=== PATIENT | male | born 1960 | race Caucasian/White ===

== ENCOUNTER 2018-06-14 16:12 | Emergency (ER) | payer OTHER ==
[~2018-06-14] VITALS: Ht 172.7 cm; Wt 77.3 kg
[~2018-06-14 16:12] MED LIST: ASPI81TA39 PO; ATOR40TA28 PO; LOSA50TA64 PO; METF-446 PO; TICA90TA PO
[2018-06-14 16:24] LABS: GLUCOSE,POINT OF CARE 195 MG/DL (70-110)
[2018-06-14] MEDS ORDERED: TICAGRELOR 90 MG TABLET PO ONE (18:15)
[2018-06-14 18:44] VITALS: BP 138/80
== END 2018-06-14 18:58 | disposition home or self-care (01) ==
LOC: EMS 16:13
DX: Z76.0 Encounter for issue of repeat prescription (principal); E11.9 Type 2 diabetes mellitus without complications; I10 Essential (primary) hypertension; Z79.84 Long term (current) use of oral hypoglycemic drugs; Z79.82 Long term (current) use of aspirin

== ENCOUNTER 2018-06-23 01:39 | Inpatient (IN) | payer OTHER ==
[~2018-06-23] VITALS: Ht 162.6 cm; Wt 72.3 kg
[2018-06-23 01:54] LABS: GLUCOSE,POINT OF CARE 259 MG/DL (70-110)
[2018-06-23] MEDS ORDERED: SODIUM CHLORIDE 0.9% 0 ML ONE (02:34)
[2018-06-23] MEDS ORDERED: IOVERSOL 350 MG/ML 100 ML VIAL ONE (02:34)
[2018-06-23 02:55] LABS: BASOPHILS % (AUTO) 0.5 % (0.0-2.0); EOSINOPHILS % (AUTO) 0.4 % (1.0-6.0); HEMATOCRIT 37.3 % (41-53); HEMOGLOBIN 12.6 g/dL (13.5-17.5); LYMPHOCYTES # (AUTO) 1.9 K/uL (1.0-4.8); LYMPHOCYTES % (AUTO) 15.4 % (22.0-44.0); MEAN CORPUSCULAR HEMOGLOBIN 29.2 pg (26.0-34.0); MEAN CORPUSCULAR HGB CONC 33.9 G/dL (31.0-37.0); MEAN CORPUSCULAR VOLUME 86 fL (80-100); MONOCYTES # (AUTO) 0.8 K/uL (0.1-1.0); MONOCYTES % (AUTO) 6.6 % (2.0-9.0); NEUTROPHILS # (AUTO) 9.3 K/uL (1.8-7.7); NEUTROPHILS % (AUTO) 77.1 % (40.0-70.0); PLATELET COUNT (AUTO) 243 K/uL (150-450); RED BLOOD CELL COUNT(AUTO) 4.32 MIL/uL (4.50-5.90); RED CELL DISTRIBUTION WIDTH 12.7 % (11.5-14.5)
[2018-06-23 03:04] LABS: ANION GAP 9 mmol/L (8-16); CARBON DIOXIDE 26 mmol/L (22-29); CHLORIDE 101 mmol/L (98-107); CREATININE 0.84 mg/dL (0.60-1.30); GLOMERULAR FILTR. RATE CALC > 60 mL/min (>60); GLUCOSE,RANDOM 249 mg/dL (70-110); POTASSIUM 3.8 mmol/L (3.5-5.1); SODIUM SERUM 136 mmol/L (136-145); UREA NITROGEN, BLOOD 16 mg/dL (7-18)
[2018-06-23 03:06] LABS: PROTHROMBIN TIME 10.6 SEC (9.4-11.6)
[2018-06-23 03:11] LABS: ALANINE AMINOTRANSFERASE 32 U/L (12-78); ALBUMIN 3.2 g/dL (3.4-5.0); ALKALINE PHOSPHATASE 113 U/L (46-116); ASPARTATE AMINOTRANSFERASE 15 U/L (15-37); BILIRUBIN,TOTAL 0.4 mg/dL (0.1-1.0); CREATINE KINASE, TOTAL ONLY 53 U/L (39-308); TOTAL PROTEIN, SERUM 6.7 g/dL (6.4-8.2)
[2018-06-23 03:21] LABS: B-TYPE NATRIURETIC PEPTIDE 138 pg/mL (0-100)
[2018-06-23] MEDS ORDERED: ASPIRIN 325 MG TABLET PO ONE (04:15)
[2018-06-23] MEDS ORDERED: 0.9% SODIUM CHLORIDE 10 ML SYRINGE IVP PRN ×2 (04:30→11:15)
[2018-06-23] MEDS ORDERED: ACETAMINOPHEN 325 MG TABLET PO PRN (04:30)
[2018-06-23] MEDS ORDERED: ONDANSETRON HCL 4 MG/2 ML VIAL IVP PRN ×2 (04:30→11:15)
[2018-06-23 07:25] LABS: APPEARANCE,URINE CLEAR (CLEAR); BILIRUBIN,URINE NEGATIVE (NEGATIVE); GLUCOSE, URINE (UA) 250 mg/dL (NEGATIVE); KETONES,URINE NEGATIVE (NEGATIVE); LEUKOCYTE ESTERASE ,URINE NEGATIVE (NEGATIVE); NITRATE,URINE NEGATIVE (NEGATIVE); OCCULT BLOOD,URINE NEGATIVE (NEGATIVE); PROTEIN,URINE NEGATIVE (NEGATIVE); UROBILINOGEN,URINE 0.2 mg/dL (<=1.0)
[2018-06-23 07:35] LABS: BACTERIA,URINE None Seen /HPF (None Seen); RBC,URINE None Seen /HPF (0-2); SQUAMOUS EPITHELIAL CELL,UR Rare /LPF (None Seen); WBC,URINE None Seen /HPF (0-5)
[2018-06-23] MEDS ORDERED: FUROSEMIDE 40 MG/4 ML VIAL IVP ONE (09:15)
[2018-06-23] MEDS ORDERED: POTASSIUM CHLORIDE 20 MEQ ER TABLET PO ONE (09:15)
[2018-06-23] MEDS: CARVEDILOL 3.125 MG TABLET PO SCH ×2 (10:04→21:23)
[2018-06-23] MEDS: TICAGRELOR 90 MG TABLET PO SCH ×2 (10:04→21:23)
[2018-06-23] MEDS: ATORVASTATIN CALCIUM 40 MG TABLET PO SCH (10:04)
[2018-06-23] MEDS: LOSARTAN POTASSIUM 25 MG TABLET PO SCH ×2 (11:01→21:00)
[2018-06-23] MEDS: ASPIRIN 81 MG EC TABLET PO SCH (11:01)
[2018-06-23] MEDS ORDERED: GLUCAGON,HUMAN RECOMBINANT 1 MG VIAL IM PRN (11:15)
[2018-06-23] MEDS ORDERED: DEXTROSE 50%-WATER 25 GM/50 ML SYRINGE IVP PRN (11:15)
[2018-06-23] MEDS ORDERED: ZOLPIDEM TARTRATE 5 MG TABLET PO PRN (11:15)
[2018-06-23 11:49] LABS: GLUCOSE,POINT OF CARE 236 MG/DL (70-110)
[2018-06-23] MEDS: PANTOPRAZOLE SODIUM 40 MG/VIAL IVP SCH (11:51)
[2018-06-23] MEDS: INSULIN LISPRO 100 UNITS/ML SQ PRN ×3 (12:09→21:22)
[2018-06-23 17:20] LABS: GLUCOSE,POINT OF CARE 177 MG/DL (70-110)
[2018-06-23] MEDS: MetFORMIN HCL 500 MG TABLET PO SCH (17:21)
[2018-06-23 20:34] VITALS: BP 114/67
[2018-06-23 23:59] VITALS: BP 101/55
[2018-06-24 00:45] LABS: GLUCOMETER DEV NAME(LOC) 5S.1; GLUCOSE,POINT OF CARE 225 MG/DL (70-110)
[2018-06-24 05:00] VITALS: BP 109/65
[2018-06-24] MEDS: INSULIN LISPRO 100 UNITS/ML SQ PRN ×2 (06:04→12:04)
[2018-06-24 07:19] LABS: GLUCOMETER DEV NAME(LOC) 5S.1; GLUCOSE,POINT OF CARE 174 MG/DL (70-110)
[2018-06-24 07:42] VITALS: BP 95/59
[2018-06-24] MEDS: MetFORMIN HCL 500 MG TABLET PO SCH (08:04)
[2018-06-24] MEDS: PANTOPRAZOLE SODIUM 40 MG/VIAL IVP SCH (08:04)
[2018-06-24] MEDS: TICAGRELOR 90 MG TABLET PO SCH (08:04)
[2018-06-24] MEDS: ATORVASTATIN CALCIUM 40 MG TABLET PO SCH (08:05)
[2018-06-24] MEDS: ASPIRIN 81 MG EC TABLET PO SCH (08:05)
[2018-06-24] MEDS: LOSARTAN POTASSIUM 25 MG TABLET PO SCH (08:05)
[2018-06-24] MEDS: CARVEDILOL 3.125 MG TABLET PO SCH (08:05)
[2018-06-24 08:29] LABS: BASOPHILS % (AUTO) 0.5 % (0.0-2.0); EOSINOPHILS % (AUTO) 1.4 % (1.0-6.0); HEMATOCRIT 37.8 % (41-53); HEMOGLOBIN 12.9 g/dL (13.5-17.5); LYMPHOCYTES # (AUTO) 2.7 K/uL (1.0-4.8); LYMPHOCYTES % (AUTO) 30.9 % (22.0-44.0); MEAN CORPUSCULAR HGB CONC 34.1 G/dL (31.0-37.0); MEAN CORPUSCULAR VOLUME 85 fL (80-100); MONOCYTES # (AUTO) 0.8 K/uL (0.1-1.0); NEUTROPHILS # (AUTO) 5.1 K/uL (1.8-7.7); NEUTROPHILS % (AUTO) 58.2 % (40.0-70.0); PLATELET COUNT (AUTO) 240 K/uL (150-450); RED BLOOD CELL COUNT(AUTO) 4.44 MIL/uL (4.50-5.90); RED CELL DISTRIBUTION WIDTH 12.8 % (11.5-14.5)
[2018-06-24 08:48] LABS: ALANINE AMINOTRANSFERASE 30 U/L (12-78); ALKALINE PHOSPHATASE 82 U/L (46-116); ANION GAP 6 mmol/L (8-16); ASPARTATE AMINOTRANSFERASE 18 U/L (15-37); BILIRUBIN,TOTAL 0.4 mg/dL (0.1-1.0); CALCIUM, TOTAL 8.7 mg/dL (8.8-10.5); CARBON DIOXIDE 29 mmol/L (22-29); CHLORIDE 104 mmol/L (98-107); CREATININE 0.82 mg/dL (0.60-1.30); GLOMERULAR FILTR. RATE CALC > 60 mL/min (>60); GLUCOSE,RANDOM 167 mg/dL (70-110); POTASSIUM 4.1 mmol/L (3.5-5.1); SODIUM SERUM 139 mmol/L (136-145); TOTAL PROTEIN, SERUM 6.2 g/dL (6.4-8.2); UREA NITROGEN, BLOOD 17 mg/dL (7-18)
[2018-06-24] MEDS ORDERED: FUROSEMIDE 20 MG TABLET PO SCH (09:30)
[2018-06-24 11:41] VITALS: BP 96/60
[2018-06-24 12:35] LABS: GLUCOMETER DEV NAME(LOC) 5S.1; GLUCOSE,POINT OF CARE 178 MG/DL (70-110)
[2018-06-24 15:00] VITALS: BP 97/61
[2018-06-24] MEDS ORDERED: LOSA25TA41 PO (15:33)
[2018-06-24] MEDS ORDERED: ASPI81 PO (15:34)
[2018-06-24] MEDS ORDERED: CARV3 PO (15:34)
[2018-06-24] MEDS ORDERED: FURO20 PO (15:34)
== END 2018-06-24 16:15 | disposition home or self-care (01) | DRG 194 ==
LOC: EMS 01:40 → 5S 18:19
PROVIDERS: ADMIT Internal Medicine; ATTEND Internal Medicine
DX: I11.0 Hypertensive heart disease with heart failure (principal); E11.9 Type 2 diabetes mellitus without complications; E78.5 Hyperlipidemia, unspecified; I50.21 Acute systolic (congestive) heart failure; I25.10 Atherosclerotic heart disease of native coronary artery without angina pectoris; E78.00 Pure hypercholesterolemia, unspecified; F41.9 Anxiety disorder, unspecified; Z79.84 Long term (current) use of oral hypoglycemic drugs
CPT/HCPCS: 83735; 93005; 93306; C9113; G0378; J1815; J1940; J7050

== ENCOUNTER 2021-07-07 08:50 | Inpatient (IN) | payer MEDICARE, OTHER ==
[~2021-07-07] VITALS: Ht 162.6 cm; Wt 74.2 kg
[~2021-07-07 08:50] MED LIST changes: +ASPI-1450 PO; -ASPI81TA39 PO; +CARV3 PO; +CLOP75TA60 PO; +ERTU5TAB PO; +FURO20 PO; -LOSA50TA64 PO; +METF-1211 PO; -METF-446 PO; +NITR0.4T52 SL; -TICA90TA PO
[2021-07-07] MEDS ORDERED: FAMOTIDINE 10 MG/ML 2 ML VIAL IVP ONE (09:30)
[2021-07-07] MEDS ORDERED: ACETAMINOPHEN 500 MG TABLET PO ONE (09:30)
[2021-07-07] MEDS ORDERED: MAG HYDROX/AL HYDROX/SIMETH 30 ML SUSP UDCUP PO ONE (09:30)
[2021-07-07 09:40] LABS: BASOPHILS % (AUTO) 0.5 % (0.0-2.0); HEMATOCRIT 45.2 % (41-53); HEMOGLOBIN 15.3 g/dL (13.5-17.5); LYMPHOCYTES # (AUTO) 1.9 K/uL (1.0-4.8); LYMPHOCYTES % (AUTO) 25.1 % (22.0-44.0); MEAN CORPUSCULAR HEMOGLOBIN 30.1 pg (26.0-34.0); MEAN CORPUSCULAR HGB CONC 33.8 G/dL (31.0-37.0); MEAN CORPUSCULAR VOLUME 89 fL (80-100); MONOCYTES # (AUTO) 0.6 K/uL (0.1-1.0); MONOCYTES % (AUTO) 8.5 % (2.0-9.0); NEUTROPHILS % (AUTO) 64.9 % (40.0-70.0); PLATELET COUNT (AUTO) 187 K/uL (150-450); RED BLOOD CELL COUNT(AUTO) 5.08 MIL/uL (4.50-5.90); RED CELL DISTRIBUTION WIDTH 13.5 % (11.5-14.5)
[2021-07-07 09:50] LABS: ANION GAP 10 mmol/L (8-16); CARBON DIOXIDE 25 mmol/L (22-29); CHLORIDE 100 mmol/L (98-107); CREATININE 0.89 mg/dL (0.60-1.30); GLOMERULAR FILTR. RATE CALC > 60 mL/min (>60); GLUCOSE,RANDOM 226 mg/dL (70-110); POTASSIUM 4.7 mmol/L (3.5-5.1); SODIUM SERUM 135 mmol/L (136-145); UREA NITROGEN, BLOOD 25 mg/dL (7-18)
[2021-07-07 09:54] LABS: PROTHROMBIN TIME 10.7 SEC (9.4-11.6)
[2021-07-07 10:07] LABS: B-TYPE NATRIURETIC PEPTIDE 16 pg/mL (0-100)
[2021-07-07 10:14] LABS: ALANINE AMINOTRANSFERASE 29 U/L (12-78); ALBUMIN 4.2 g/dL (3.4-5.0); ALKALINE PHOSPHATASE 95 U/L (46-116); ASPARTATE AMINOTRANSFERASE 17 U/L (15-37); BILIRUBIN,TOTAL 0.5 mg/dL (0.1-1.0); CREATINE KINASE, TOTAL ONLY 81 U/L (39-308); PHOSPHORUS 3.1 mg/dL (2.5-4.9); TOTAL PROTEIN, SERUM 8.1 g/dL (6.4-8.2)
[2021-07-07 10:30] LABS: COVID AG,FIA SOURCE NASOPHARYNGEAL
[2021-07-07] MEDS ORDERED: ONDANSETRON HCL 4 MG/2 ML VIAL IVP PRN (11:45)
[2021-07-07] MEDS ORDERED: ACETAMINOPHEN 325 MG TABLET PO PRN (11:45)
[2021-07-07] MEDS ORDERED: 0.9% SODIUM CHLORIDE 10 ML SYRINGE IVP PRN (11:45)
[2021-07-07 12:36] VITALS: BP 122/74
[2021-07-07] MEDS ORDERED: PIOG30TA10 PO (13:15)
[2021-07-07] MEDS ORDERED: SPIR-37 PO (13:15)
[2021-07-07] MEDS ORDERED: SACU1TAB7 PO (13:16)
[2021-07-07 16:40] VITALS: BP 124/70
[2021-07-07 17:41] LABS: GLUCOMETER DEV NAME(LOC) 5N.3; GLUCOSE,POINT OF CARE 97 MG/DL (70-110)
[2021-07-07 20:21] VITALS: BP 113/64
[2021-07-08 00:51] VITALS: BP 115/68
[2021-07-08 03:51] VITALS: BP 109/64
[2021-07-08 06:26] LABS: GLUCOMETER DEV NAME(LOC) 5N.3; GLUCOSE,POINT OF CARE 122 MG/DL (70-110)
[2021-07-08 07:18] VITALS: BP 116/67
[2021-07-08 08:16] LABS: ALANINE AMINOTRANSFERASE 26 U/L (12-78); ALBUMIN 3.6 g/dL (3.4-5.0); ALKALINE PHOSPHATASE 79 U/L (46-116); ANION GAP 7 mmol/L (8-16); ASPARTATE AMINOTRANSFERASE 18 U/L (15-37); BILIRUBIN,TOTAL 0.6 mg/dL (0.1-1.0); CALCIUM, TOTAL 8.8 mg/dL (8.8-10.5); CARBON DIOXIDE 26 mmol/L (22-29); CHLORIDE 101 mmol/L (98-107); CREATINE KINASE, TOTAL ONLY 79 U/L (39-308); GLOMERULAR FILTR. RATE CALC > 60 mL/min (>60); GLUCOSE,RANDOM 105 mg/dL (70-110); POTASSIUM 4.6 mmol/L (3.5-5.1); SODIUM SERUM 134 mmol/L (136-145); TOTAL PROTEIN, SERUM 7.1 g/dL (6.4-8.2); UREA NITROGEN, BLOOD 24 mg/dL (7-18)
[2021-07-08 08:42] LABS: BASOPHILS % (AUTO) 0.4 % (0.0-2.0); HEMATOCRIT 42.6 % (41-53); HEMOGLOBIN 14.8 g/dL (13.5-17.5); LYMPHOCYTES # (AUTO) 2.4 K/uL (1.0-4.8); LYMPHOCYTES % (AUTO) 35.3 % (22.0-44.0); MEAN CORPUSCULAR HEMOGLOBIN 30.6 pg (26.0-34.0); MEAN CORPUSCULAR HGB CONC 34.7 G/dL (31.0-37.0); MEAN CORPUSCULAR VOLUME 88 fL (80-100); MONOCYTES # (AUTO) 0.8 K/uL (0.1-1.0); MONOCYTES % (AUTO) 11.3 % (2.0-9.0); NEUTROPHILS # (AUTO) 3.6 K/uL (1.8-7.7); PLATELET COUNT (AUTO) 186 K/uL (150-450); RED BLOOD CELL COUNT(AUTO) 4.82 MIL/uL (4.50-5.90); RED CELL DISTRIBUTION WIDTH 13.5 % (11.5-14.5)
[2021-07-08 09:01] LABS: GLUCOMETER DEV NAME(LOC) 5N.1C; GLUCOSE,POINT OF CARE 164 MG/DL (70-110)
[2021-07-08 09:11] LABS: B-TYPE NATRIURETIC PEPTIDE 16 pg/mL (0-100)
[2021-07-08] MEDS ORDERED: PIOGLITAZONE HCL 30 MG TABLET PO SCH (09:45)
[2021-07-08] MEDS ORDERED: SPIRONOLACTONE 25 MG TABLET PO SCH (09:45)
[2021-07-08] MEDS ORDERED: CLOPIDOGREL BISULFATE 75 MG TABLET PO SCH (09:45)
[2021-07-08] MEDS ORDERED: CARVEDILOL 3.125 MG TABLET PO SCH (09:45)
[2021-07-08] MEDS ORDERED: NITROGLYCERIN 0.4 MG SUBLINGUAL TABLET #25 SL PRN (09:45)
[2021-07-08] MEDS ORDERED: SACUBITRIL/VALSARTAN 49-51 MG TABLET PO SCH (09:45)
[2021-07-08] MEDS ORDERED: FUROSEMIDE 20 MG TABLET PO SCH (09:45)
[2021-07-08] MEDS ORDERED: ASPIRIN 81 MG CHEWABLE TABLET PO SCH (09:45)
[2021-07-08 11:22] VITALS: BP 142/89
[2021-07-08 14:42] VITALS: BP 132/72
[2021-07-08 17:41] LABS: GLUCOMETER DEV NAME(LOC) 5N.1C; GLUCOSE,POINT OF CARE 212 MG/DL (70-110)
[2021-07-08] MEDS ORDERED: MetFORMIN HCL 500 MG TABLET PO SCH (18:00)
[2021-07-08] MEDS ORDERED: ATORVASTATIN CALCIUM 40 MG TABLET PO SCH (21:00)
== END 2021-07-08 15:05 | disposition home or self-care (01) | DRG 313 ==
LOC: EMS 08:56 → 5S 11:37
PROVIDERS: ADMIT Hospitalist; ATTEND Hospitalist
DX: R07.9 Chest pain, unspecified (principal); I42.9 Cardiomyopathy, unspecified; I25.10 Atherosclerotic heart disease of native coronary artery without angina pectoris; E11.9 Type 2 diabetes mellitus without complications; E78.00 Pure hypercholesterolemia, unspecified; I10 Essential (primary) hypertension; E78.5 Hyperlipidemia, unspecified; Z95.5 Presence of coronary angioplasty implant and graft; Z95.810 Presence of automatic (implantable) cardiac defibrillator; I25.2 Old myocardial infarction
CPT/HCPCS: 71045; 80053; 82550; 82962; 83735; 83880; 84100; 84484; 85025; 85610; 85730; 87081; 93005; 99285; G0378; J3490; Q9967; 36415-L1; 36415-TC